=== PATIENT | male | born 1985 | race Two or more races ===

== ENCOUNTER 2022-12-31 19:27 | Emergency (ER) | payer SELFPAY ==
--- NOTE | 2022-12-31 20:49 | NUR ---
CALLED TO [facility]. NOT IN WAITING ROOM
--- NOTE | 2022-12-31 20:54 | NUR ---
CALLED FOR TRIAGE, STILL NOT IN WAITING ROOM.
== END 2022-12-31 20:55 | disposition left against medical advice (07) ==
LOC: ER 19:29
DX: Z53.21 Procedure and treatment not carried out due to patient leaving prior to being seen by health care provider (principal)